=== PATIENT | female | born 1990 | race Hispanic/Latino ===

== ENCOUNTER 2016-02-29 09:50 | Emergency (ER) | payer OTHER ==
[~2016-02-29] VITALS: Ht 162.6 cm; Wt 120.0 kg
[~2016-02-29 09:50] MED LIST: LISI-567 PO
[2016-02-29 09:52] VITALS: BP 141/93; PULSE 70; RESP 20; O2SAT 99
--- NOTE | 2016-02-29 09:59 | ED.REPORT ---
HPI-General Illness Date of Service Feb 29, 2016 ED Provider: Enoch Rizo MD A 25 year old female with a history of hypertension presents to the ED with a headache onset four days ago. Today, she also developed lightheadedness, chest "tightness," and shortness of breath, causing her to fall just prior to arrival. The patient denies fever, cough, congestion, sore throat, vomiting, diarrhea, urinary symptoms, or trauma/injury from her fall. The patient has taken ibuprofen and Tylenol with mild relief. She has an appointment with her PCP next week. Nursing Notes Stated Complaint: HEADACHE, DIZZINESS Chief Complaint: General Complaint Nursing Notes Reviewed: Yes Allergies: Coded Allergies: No Known Allergies (Verified Allergy, Unknown, 10/13/14) Scheduled Lisinopril (Lisinopril) 20 Mg Tablet 20 MG PO DAILY Scheduled PRN Metoclopramide (Reglan) 10 Mg Tablet 10 MG PO QID PRN PRN Headache Naproxen (Naproxen) 500 Mg Tablet.dr 500 MG PO BID PRN PRN For Pain General Time Seen by MD: 09:58 Chief Complaint Headache Hx Obtained From: Patient Arrived By: Walk-in Sudden in Onset?: No Onset Occurred: 4 days ago Symptom Duration: Since onset Location: : Head Quality: Painful Severity: Current: Moderate Severity: Maximum: Moderate Associated with: Reports: Chest pain ("tightness"), Shortness of breath, Denies: Fever Relieved by: OTC medications Recent Healthcare: No recent doctor visit Similar Sx Previous: No Past Medical History Past Medical History HTN (prior pregnancied induced in part due to HTN) Obesity Reports: Hypertension Past Surgical History Tubal ligation Smoking History Never Smoker Social History Alcohol Use: Denies alcohol use Drug Use: Denies drug use Other Social History: Lives with children Occupation lives with partner and 4 children. no work or school. 12/14/2015 Ambulatory Status Independent Review of Systems Full Review of Systems Constitutional: Denies: Fever Ears / Nose / Throat: Denies: Nasal congestion, Sore throat Respiratory: Reports: Shortness of breath, Denies: Non-productive cough Cardiovascular: Reports: Chest pain ("tightness") GI: Denies: Diarrhea, Vomiting Female: Denies: Dysuria, Hematuria Neurologic: Reports: Headache, Lightheaded Complete sys rev & neg: except as marked. Physical Exam Pulse while sitting - 70 Pulse while standing - 80 Vital Signs Vital Signs Date Time Temp Pulse Resp B/P Pulse Ox O2 Delivery O2 Flow Rate FiO2 02/29/16 12:02 70 16 139/89 100 Room Air 02/29/16 09:52 36.6 70 20 141/93 99 Room Air Initial VS: Reviewed Respiratory: Breath sounds normal, Clear to auscultation, No respiratory distress Cardiovascular: Regular rate & rhythm, Heart sounds normal Abdomen / GI: Soft, Non-tender Extremities: Vascular intact, Neuro intact, No swelling Skin: Warm, Dry Neurologic: Alert, Oriented, Nonfocal Psychiatric: Mood/affect normal, Behavior normal, Normal thought content General/Constitutional: Awake, Alert, No acute distress Head / Eyes: Atraumatic, Normocephalic, PERRL, EOMI, No nystagmus, No scleral icterus, Conjunctiva NL ENT: Airway patent, Mucous membranes moist, Pharynx NL Neck: Supple, Full range of motion, No masses Re-Eval/Medical Decision Med Decision/Clinical Course This woman appears entirely well and though she reports a syncopal event, her description sounds more like she felt lightheaded and just went to the ground because she describes no injury and simply slowly went to the ground. Her Well' s score is low and I do not believe pulmonary embolism is likely in this specific case. Source of Hx: Old records Time of Eval: 11:45 Patient Status: Condition improved Re-Evaluation/Progress Note: Discussed with patient diagnosis and plan for discharge. Follow-up and return to the ER instructions given. Patient agrees with plan for care and all questions were addressed. Counseled Regarding: Diagnosis, Need for follow-up, When/why to return to ED Discharge & Departure Primary Impression: Headache Headache type: unspecified Headache chronicity pattern: unspecified pattern Intractability: not intractable Qualified Code: R51 - Headache Additional Impression: Syncope Syncope type: unspecified Qualified Code: R55 - Syncope and collapse Disposition: Home Discharge Condition All VS Reviewed: Yes Condition: Stable Patient Instructions: Acute Headache (ED), Syncope (ED) Additional Instructions: Thank you for entrusting us with your care. Your exam today was reassuring. Please take naproxen 500 mg twice daily as prescribed. Also, use Reglan (metoclopramide) every 6 hours as needed for nausea or headache. You may also take Tylenol 1000 mg every 6 hours as needed for headache in combination with the above medications. Follow-up next Thursday as planned. Return to the ER with any new or worsening symptoms including fever or another fainting episode. Referrals: Cata Dillard MD (PCP) Scribe Attestation Portions of this note were transcribed by Germaine Altman. I, Dr. Rizo, personally performed the history, physical exam, and medical decision-making; I reviewed and confirmed the accuracy of the information in the transcribed note. Signed by: Ramin Tariq, 02/29/2016, 12:04 copies to: Cata Dillard MD Well's Criteria for PE Well's PE Score: 0-2 pts (low risk 3.6%) Enoch Rizo MD Feb 29, 2016 09:59 GERMAINE ALTMAN Feb 29, 2016 11:42
[2016-02-29] MEDS ORDERED: NAPR500T5 PO (11:56)
[2016-02-29] MEDS ORDERED: METO-301 PO (11:56)
[2016-02-29 12:02] VITALS: BP 139/89; PULSE 70; RESP 16; O2SAT 100
== END 2016-02-29 12:03 | disposition home or self-care (01) ==
LOC: SED 09:50
DX: R51 Headache (principal); R55 Syncope and collapse; R07.89 Other chest pain; W18.30XA Fall on same level, unspecified, initial encounter; R06.02 Shortness of breath; I10 Essential (primary) hypertension; Y93.9 Activity, unspecified; Y92.9 Unspecified place or not applicable; Y99.8 Other external cause status